=== PATIENT | female | born 1995 | race Caucasian/White ===

== ENCOUNTER → 2019-10-07 15:12 | Outpatient (CLI) | payer BC, SELFPAY ==
--- NOTE | ~2019-10-07 | US_ITS ---
EXAMINATION: US OB >= 14 weeks Fetus DATE: 10/07/2019 15:54 INDICATION: Second trimester anatomic survey. TECHNIQUE: Real-time ultrasound of the pelvis was performed. COMPARISON: None. FINDINGS: There is a single living fetus in breech presentation. The placenta is posterior and 4 cm from the in ternal cervical os. heart rate is 133 beats per minute (bpm). cardiac activity and movement are noted. The amniotic fluid index is subjectively normal. The following anatomy was identified as normal: 4 chamber heart 3 vessel cord cord insertion kidneys urinary bladder stomach spine diaphragm ventricles cisterna magna cerebellum The following biometric data were obtained: Biparietal diameter (BPD): 6.12 cm; head circumference (HC): 1.8 cm; abdominal circumference (AC): 20 .5 cm; femur length (FL): 4.1 cm. The femoral length to biparietal diameter ratio is greater than two standard deviations below the david n. These measurements are otherwise concordant. Estimated weight is 662 g +/- 99 g, which correlates with the 96th percentile when 02/05/2020 is used as estimated date of delivery. As single measurements, these parameters are each equal to the following estimated gestational ages w ith ranges of +/- 2 standard deviations: BPD: 24 weeks 6 days ( 22 weeks 4 days - 27 weeks 0 days). HC: 23 weeks 6 days ( 22 weeks 3 days - 25 weeks 2 days). AC: 24 weeks 5 days ( 22 weeks 4 days - 26 weeks 6 days). FL: 23 weeks 2 days ( 21 weeks 4 days - 25 weeks 1 days). estimated gestational age based solely on measurements from this exam is 24 weeks 1 days +/- 1 weeks 5 days. IMPRESSION: 1. Single living fetus in breech presentation. 2. Estimated weight is 662 g +/- 99 g, which correlates with the 96th percentile when 02/05/2020 is used as estimated date of delivery. 3. Femoral length to biparietal diameter ratio greater than two standard deviations below the mean. Reviewed, dictated and finalized at location A. IMPRESSION: 1. Single living fetus in breech presentation. 2. Estimated weight is 662 g +/- 99 g, which correlates with the 96th per centile when 02/05/2020 is used as estimated date of delivery. 3. Femoral length to biparietal diameter ratio greater than two standard deviat ions below the mean.
== END ==
PROVIDERS: Visit Provider Obstetrics & Gynecology
DX: Z36.9 Encounter for antenatal screening, unspecified (principal); Z3A.24 24 weeks gestation of pregnancy
CPT/HCPCS: 76805